=== PATIENT | female | born 2000 | race Caucasian/White ===

== ENCOUNTER 2020-02-02 19:14 | Emergency (ER) | payer OTHER ==
--- NOTE | 2020-02-02 20:16 | ER Document Report ---
HPI - HPI Time Seen by Provider: 02/02/20 20:06 Pain Level: 4 Context: Patient is 19-year-old female who presents emergency department with a chief complaint of right neck and shoulder pain. Patient states she was doing reverse push-ups and when she was done she was having neck pain. Patient states that she has trouble moving her neck to the right side. States that she has some numbness down her right arm. Denies any injury. Patient is active duty . Patient states that she has history of back pain in the past. She has taken Robaxin with some relief of her symptoms. States that she does not have any more Robaxin. - ROS Systems Reviewed and Negative: Yes All other systems reviewed and negative - CONSTITUTIONAL Constitutional: DENIES: Fever, Chills - RESPIRATORY Respiratory: DENIES: Trouble Breathing, Coughing - MUSCULOSKELETAL Musculoskeletal: REPORTS: Extremity pain - right posterior shoulder, Neck Pain - right neck - DERM Skin Color: Normal Skin Problems: None Past Medical History - General Information source: Patient - Social History Smoking Status: Unknown if Ever Smoked Family History: Reviewed & Not Pertinent Vertical Provider Document - CONSTITUTIONAL Agree With Documented VS: Yes Exam Limitations: No Limitations General Appearance: No Apparent Distress - HEENT HEENT: Atraumatic, Normocephalic, PERRLA - NECK Neck: Normal Inspection - RESPIRATORY Respiratory: Breath Sounds Normal, No Respiratory Distress - CARDIOVASCULAR Cardiovascular: Regular Rate, Regular Rhythm Pulses: Normal: Radial - MUSCULOSKELETAL/EXTREMETIES Musculoskeletal/Extremeties: FROM, Tender - right trapezius muscle; right side of neck - NEURO Level of Consciousness: Awake, Alert, Appropriate Motor/Sensory: No Motor Deficit - DERM Integumentary: Warm, Dry, No Rash Course - Re-evaluation Re-evalutation: 02/02/20 Patient's physical exam is consistent with a trapezius muscle strain. Will place the patient on Robaxin. There is no tenderness to spinous processes and cervical spine. I have a low suspicion for meningitis, compression fracture, or any life-threatening etiology at this time. [place] Patient has normal strength on exam in bilateral upper extremities. Follow-up precautions were given. Verbal discharge instructions were given to the patient. They verbalized understanding. They are stable for discharge. - Vital Signs Vital signs: Temp Pulse Resp BP Pulse Ox 98.1 F 80 16 112/64 98 02/02/20 19:25 02/02/20 19:25 02/02/20 19:25 02/02/20 19:25 02/02/20 19:25 Discharge - Discharge Clinical Impression: Neck pain Trapezius muscle strain Qualifiers: Encounter type: initial encounter Laterality: right Qualified Code(s): S46.811A - Strain of other muscles, fascia and tendons at shoulder and upper arm level, right arm, initial encounter Condition: Stable Disposition: HOME, SELF-CARE Additional Instructions: You were seen today in the emergency department for right neck and shoulder pain. Your exam is consistent with a trapezius muscle strain. Take ibuprofen 600 mg and acetaminophen 1000 mg every 6 hours for your pain. You can take the Robaxin as ordered. If it is too much, you can always take less of the Robaxin. Follow-up with your PCM this week. Ask for physical therapy. Prescriptions: Methocarbamol [Robaxin 750 mg Tablet] 750 mg PO ASDIR PRN #40 tablet PRN Reason: Referrals: [facility] [Provider Group] - Follow up in 3-5 days
[2020-02-02 20:41] VITALS: BP 125/71
== END 2020-02-02 20:41 | disposition home or self-care (01) ==
LOC: ER 19:14
DX: S46.811A Strain of other muscles, fascia and tendons at shoulder and upper arm level, right arm, initial encounter (principal); M54.2 Cervicalgia; X58.XXXA Exposure to other specified factors, initial encounter; Y93.B2 Activity, push-ups, pull-ups, sit-ups
CPT/HCPCS: 99283